=== PATIENT | female | born 1970 | race Two or more races ===

== ENCOUNTER 2023-03-18 12:56 | Emergency (ER) | payer OTHER ==
[~2023-03-18] VITALS: Ht 149.9 cm; Wt 72.3 kg
[2023-03-18 14:02] VITALS: TEMP 98.2
[2023-03-18] MEDS ORDERED: IBUPROFEN 600 MG TABLET PO ONE (16:15)
[2023-03-18] MEDS ORDERED: IBUP-1492 PO (16:17)
[2023-03-18 16:21] VITALS: BP 142/66; PULSE 89; RESP 16
[2023-03-18] MEDS ORDERED: INSULIN REGULAR, HUMAN 100 UNITS/ML SQ ONE (16:30)
[2023-03-18 17:21] LABS: GLUCOMETER DEV NAME(LOC) ER.6; GLUCOSE,POINT OF CARE 376 MG/DL (70-110)
== END 2023-03-18 16:50 | disposition home or self-care (01) ==
LOC: EMS 15:14
DX: S00.83XA Contusion of other part of head, initial encounter (principal); M79.602 Pain in left arm; M53.3 Sacrococcygeal disorders, not elsewhere classified; E11.65 Type 2 diabetes mellitus with hyperglycemia; Y04.8XXA Assault by other bodily force, initial encounter; Y93.89 Activity, other specified; Y92.89 Other specified places as the place of occurrence of the external cause; Y99.8 Other external cause status
CPT/HCPCS: 99285; 70450; 82962; 72220; 73060; 70486; 96372; J1815

== ENCOUNTER 2024-08-29 07:11 | Emergency (ER) | payer MEDICAID, OTHER ==
[~2024-08-29] VITALS: Ht 142.2 cm; Wt 63.6 kg
[~2024-08-29 07:11] MED LIST: IBUP-1492 PO
[2024-08-29 07:37] VITALS: TEMP 98.1
[2024-08-29 08:36] LABS: GLUCOMETER DEV NAME(LOC) ERT.6; GLUCOSE,POINT OF CARE 324 MG/DL (70-110)
[2024-08-29] MEDS: DiphenhydrAMINE HCL 25 MG CAPSULE PO ONE (11:54)
[2024-08-29] MEDS: INSULIN REGULAR, HUMAN 100 UNITS/ML SQ ONE (11:56)
[2024-08-29] MEDS: PERMETHRIN 5% 60 GM CREAM TP ONE (12:03)
[2024-08-29 12:40] VITALS: BP 128/80; PULSE 65; RESP 16; O2SAT 96
[2024-08-29] MEDS ORDERED: DIPH-1243 PO (12:44)
[2024-08-29 12:46] LABS: GLUCOMETER DEV NAME(LOC) ER.7; GLUCOSE,POINT OF CARE 265 MG/DL (70-110)
== END 2024-08-29 12:50 | disposition home or self-care (01) ==
LOC: EMS 07:21
DX: B86 Scabies (principal); E11.9 Type 2 diabetes mellitus without complications; Z79.4 Long term (current) use of insulin
CPT/HCPCS: 99283; 82962; 96372; J1815